=== PATIENT | female | born 1985 | race Caucasian/White ===

== ENCOUNTER 2023-07-08 20:09 | Emergency (ER) | payer OTHER, SELFPAY ==
[2023-07-08 20:34] VITALS: BP 150/90; PULSE 78; RESP 16; TEMP 36.6; O2SAT 99; BMI 26.6
--- NOTE | 2023-07-08 21:07 | CRLHL7_ITS ---
For Patients: As a result of the Century Cures Act, medical imaging exams and procedure reports are released immediately into your electronic medical record. You may view this report before your referring provider. If you have questions, please contact your health care provider. INDICATION: Headaches. TECHNIQUE: CT of the head without contrast. Coronal and sagittal reformats are included. COMPARISON: None. FINDINGS: No CT evidence of acute cortical infarct. No loss of farr white matter differentiation. No hyperdense vessels to suggest intracranial thrombus. No acute intracranial hemorrhage. No mass effect or midline shift. No hydrocephalus or extra-axial collections. White matter is within normal limits for age. No acute osseous abnormalities. A small right maxillary sinus retention cyst. Paranasal sinuses and mastoid air cells are otherwise clear. Normal soft tissues. IMPRESSION: IMPRESSION:1. No CT evidence of acute cortical infarct. No acute intracranial hemorrhage. No other acute intracranial findings. Please note that all CT scans at this facility use dose modulation, iterative reconstruction, and/or weight-based dosing when appropriate to reduce radiation dose to as low as reasonably achievable. Dictated by Yunier Johnson MD @ 07/08/2023 9:54:31 PM (Electronically Signed)
[2023-07-08] MEDS: KETOROLAC 30 MG/ML inj IVP (21:16)
[2023-07-08] MEDS: diphenhydrAMINE 50 MG/ML inj 25 MG IVP (21:16)
[2023-07-08] MEDS: ONDANSETRON 2 MG/ML inj 4 MG IVP (21:16)
[2023-07-08] MEDS: 0.9 % SODIUM CHLORIDE 500 ML 500 ML IV (21:16)
--- NOTE | 2023-07-08 21:19 | ED_ITS ---
HPI - General Adult General Chief complaint: Headache/Migraine Stated complaint: Pressure in head Time Seen by Provider: 07/08/23 21:01 Source: patient Mode of arrival: ambulatory Limitations: no limitations History of Present Illness HPI narrative: [age] Year old female presents today with head pressure. She states this has been happening periodically over the last year. She gets these episodes where she feels like there is so much pressure inside her head, she states that it is not pain just significant pressure. She states that sometimes in the last several days, but generally goes away on its own. She states that this episode started approximately 24 hours ago and has been so intense that she came in today to seek treatment. She states that she recently had an eye exam to make sure her vision was normal and it was. She has otherwise not been seen for this pressure she has been experiencing. She denies any changes in her hearing or vision. She denies any altered mental status, confusion or focal neurologic deficits. She states she has been having a terrible time sleeping for many months now, even on night store she does not have head pressure. She denies any loss of balance or dizziness. She does feel nauseated on and off when she gets this pressure but she has never vomited. She denies any fevers or chills, unintentional weight loss or night sweats. She denies any sensitivity to bright lights or loud sounds. Her past medical history is significant for anxiety: She takes Xanax as needed and has taken hydroxyzine in the past but has not taken any in quite some time. Family history is positive for heart disease and hypertension in her mother. She quit smoking cigarettes approximately 1 year ago. Related Data Home Medications Medication Instructions Recorded Confirmed No Known Home Medications 07/08/23 07/08/23 Allergies Allergy/AdvReac Type Severity Reaction Status Date / Time seasonal Allergy Mild Uncoded 07/08/23 20:33 Review of Systems Status of ROS: Reports: 10 or more systems reviewed and unremarkable except as noted in History and below [facility] Medical History No significant past medical history Surgical History No significant past surgical history Social History Smoking Status: Never smoker Second hand tobacco smoke exposure: No How often do you have a drink containing alcohol: never How often do you have six or more drinks on one occasion: Never AUDIT-C Alcohol total score: 0 Non-prescribed substance use: denies use Exam Narrative: Exam Narrative: Well-nourished well-developed patient in no acute distress. Alert and oriented. Answers questions appropriately. Mood and affect are appropriate. Thoughts are goal oriented and rational. No tangential or magical thinking noted. Patient speaks in full sentences without needing to catch their breath. HEENT: Normocephalic atraumatic. Pupils are equally round reactive to light. Extraocular muscles are intact. Conjunctivae are moist without any icterus noted. Moist mucous membranes. Posterior pharynx is normal. Neck is soft without any lymphadenopathy or thyromegaly. No masses are appreciated. Cardiovascular: Heart is regular rate and rhythm S1 and S2 are present without any murmurs. Lungs: Clear to auscultation bilaterally no wheezes rhonchi or rales are appreciated. Patient takes deep breaths without any discomfort. Abdomen: Soft and nontender nondistended with normal bowel sounds. Extremities: Bilateral lower extremities are without edema. Skin: Well perfused without any obvious rashes. Strength is 5/5 of the upper and lower extremities. Reflexes are 2+ and symmetric at the knees. Cranial nerves 3-12 are normal. There is no nystagmus either horizontally or vertically. Gait is normal. Const: Vital Signs, click to edit/add: Vital Signs - 24 hr 07/08/23 20:34 07/08/23 22:04 Temperature 97.9 F 97.9 F Pulse Rate [Right Pulse Oximeter] 78 Respiratory Rate 16 Blood Pressure [Ri ght Upper Arm] 150/90 H Pulse Oximetry 99 Oxygen Delivery Me thod Room Air Course Course ED Course: Patient is quite concerned that she has some kind of brain pathology causing this intense pressure in her head. Therefore risks and benefits of doing a CT scan were discussed and patient wished to proceed. This was unremarkable. We did treat her with Toradol, Benadryl, Zofran and IV fluids. She did feel some relief after the treatment. Vital Signs Vital signs: Initial Vital Signs Temperature 97.9 F 07/08/23 20:34 Temperature Source Temporal Artery Scan 07/08/23 20:34 Pulse Rate 78 10/25/23 20:34 Respiratory Rate 16 07/08/23 20:34 Blood Pressure 150/90 H 07/08/23 20:34 Blood Pressure Mean 110 H 07/08/23 20:34 Blood Pressure Position Sitting 07/08/23 20:34 Pulse Oximetry 99 07/08/23 20:34 Oxygen Delivery Method Room Air 07/08/23 20:34 Vital Signs Temperature 97.9 F 07/08/23 20:34 Pulse Rate 78 07/08/23 20:34 Respiratory Rate 16 07/08/23 20:34 Blood Pressure 150/90 H 07/08/23 20:34 Pulse Oximetry 99 07/08/23 20:34 Oxygen Delivery Method Room Air 07/08/23 20:34 Temperature 97.9 F 07/08/23 22:04 Pulse Rate 78 07/08/23 20:34 Respiratory Rate 16 07/08/23 20:34 Blood Pressure 150/90 H 07/08/23 20:34 Pulse Oximetry 99 07/08/23 20:34 Oxygen Delivery Method Room Air 07/08/23 20:34 Medical Decision Making MDM Narrative Medical decision making narrative: 38-year-old female with what sounds like tension headaches. We discussed the appropriate dosing of ibuprofen, appropriate rest, stress relievers, appropriate sleep. Imaging Data CT scan - head: Attestation: I have reviewed the pertinent imaging results. Radiologist's impression: CT of the head without contrast. Coronal and sagittal reformats are included. COMPARISON: None. FINDINGS: No CT evidence of acute cortical infarct. No loss of farr white matter differentiation. No hyperdense vessels to suggest intracranial thrombus. No acute intracranial hemorrhage. No mass effect or midline shift. No hydrocephalus or extra-axial collections. White matter is within normal limits for age. No acute osseous abnormalities. A small right maxillary sinus retention cyst. Paranasal sinuses and mastoid air cells are otherwise clear. Normal soft tissues. IMPRESSION: IMPRESSION:1. No CT evidence of acute cortical infarct. No acute intracranial hemorrhage. No other acute intracranial findings. Discharge Plan Discharge Clinical Impression: Tension headache Patient Disposition: Home, Self-Care Condition: Improved Additional Instructions: Your head CT was entirely normal today. Okay to use ibuprofen as needed for headaches: Can take it 800 mg every 8 hours, take with food. Okay to try heating pad to the back of the head and shoulders, do not apply heat directly to skin. Work on your sleeping patterns: Making sure that your going to bed and waking up at the same time every night, having the same bedtime routine every night. Follow-up with your primary care doctor for further management. Prescriptions: No Action No Known Home Medications Follow Up/Referrals: Provider,Not a Local [Primary Care Provider] - Stand Alone Forms: [employer] Info Instructions
[2023-07-08 22:04] VITALS: TEMP 36.6
[2023-07-08 22:20] VITALS: BP 132/82; PULSE 74; RESP 16; TEMP 36.8; O2SAT 99
[2023-07-08 22:24] VITALS: BP 132/82; PULSE 74; RESP 16; TEMP 36.8
== END 2023-07-08 22:24 | disposition home or self-care (01) ==
PROVIDERS: Emergency Provider Family Medicine
DX: G44.209 Tension-type headache, unspecified, not intractable (principal)
CPT/HCPCS: 70450; 96374; 96375; 99283; 99284; J1200; J1885; J2405; J7120